=== PATIENT | female | born 1975 | race Caucasian/White ===

== ENCOUNTER 2018-06-03 13:46 | Emergency (ER) | payer OTHER ==
[~2018-06-03] VITALS: Ht 157.5 cm; Wt 91.3 kg
[2018-06-03] MEDS ORDERED: ZESTRIL10 MG PO (15:08)
[2018-06-03] MEDS ORDERED: PENICILLIN V P500 MG PO (15:08)
== END 2018-06-03 18:10 | disposition short-term general hospital (02) ==
LOC: ED 13:46
DX: K12.2 Cellulitis and abscess of mouth (principal); I10 Essential (primary) hypertension; Z79.899 Other long term (current) drug therapy
CPT/HCPCS: 70487; 80053; 83605; 84703; 85025; 96361; 96365; 96375; 99284-25; J1200; J2270; J2405; J2543; J7030; J7060; Q9967

== ENCOUNTER 2024-06-07 08:47 | Day surgery (SDC) | payer OTHER ==
[~2024-06-07] VITALS: Ht 157.5 cm; Wt 93.4 kg
[~2024-06-07 08:47] MED LIST: ACETAMINOPHEN500 MG PO; AMOX TR-K CLV1 EAC1 PO; HYDROCODON-ACE1 EA10 PO; HYDROCODON-ACE1 EA11 PO; IBLOOD GLUCOSE TEST STRIP 1 EA TEST VI PRN; IBUPROFEN200 M1 PO; IBUPROFEN600 MG PO; LACTATED RINGER'S 1,000 ML IV SCH; LIDOCAINE HCL 1% 5 ML SDV INJ ONE; LISINOPRIL-HCT1 EAC2 PO; LISINOPRIL-HCT1 EACH PO; MIDAZOLAM HCL 5 MG/5 ML VIAL IV PRN; PENICILLIN V P500 MG PO; ZESTRIL10 MG PO; fentaNYL citrate 100 MCG/2 ML VIAL IV PRN
[2024-06-07 09:10] VITALS: BP 119/92
[2024-06-07] MEDS ORDERED: MIDAZOLAM HCL 5 MG/5 ML VIAL ONE ×2 (10:23→10:50)
[2024-06-07] MEDS ORDERED: fentaNYL citrate 100 MCG/2 ML VIAL ONE (10:23)
--- NOTE | 2024-06-07 11:17 | NUR ---
06/07/24 Yumiko7 Colleen Ornelas 1113-PATIENT ARRIVED TO PACU AWAKE LAYING LEFT LATERAL 2L NC 98% RR EVEN. HR 107. ABDOMEN SOFT IVF INFUSING. ENCOURAGED TO PASS GAS. DENIES PAIN OR NAUSEA.
[2024-06-07 11:58] VITALS: BP 118/82
--- NOTE | 2024-06-08 10:30 | OR ---
[facility] [address], [place] [address] Signed DATE OF OPERATION: 06/07/2024 SURGEON: Avril Barlow MD PREOPERATIVE DIAGNOSIS: Positive Cologuard test. POSTOPERATIVE DIAGNOSES: 1. 4 mm polyp at 8 cm in rectum. 2. 4 mm polyp at proximal transverse colon. 3. 4 mm polyp at hepatic flexure. PROCEDURE: Colonoscopy with hot biopsy. ESTIMATED BLOOD LOSS: None. INDICATIONS: Izzy is a 48-year-old female who is learning disabled and is now on disability. She has a sister who helps her get around town and go to appointments and so forth. She had a positive Cologuard test in April 2023. She has been anxious about having the colonoscopy. She told me she was raised by her grandparents. She has no knowledge of her dad or his side of the family. She does not believe anyone on her mother side of the family has colon cancer or colon polyps. She has no lower GI complaints. She told me the heart rate is fast because she was anxious in the office. In the office, I gave her our brochure on colonoscopy. We had reviewed the nature of the colonoscopy. She understands there is risk including, but not limited to gas bloating, crampy abdominal pain, bleeding, perforation requiring surgery, and missed diagnosis. We also reviewed the written instructions for the bowel prep line by line. She also understands the need for IV conscious sedation. She had expressed understanding and wished to proceed. DESCRIPTION OF PROCEDURE: Izzy was taken into our endoscopy suite and placed in the left lateral decubitus position. Once again she was anxious and her heart rate was just over 100 as it was in the office. She was given a total of 12 mg of Versed and 150 mcg of fentanyl. Overall, she did fine, but she was frequently awake and moaning. I think in the future she would be much better served with monitored anesthesia care propofol infusion. I think it will be safer and she will wake up lingo cleaner and it would be more comfortable. A digital rectal exam had been done and this was unremarkable. No external hemorrhoids. Good Electronically Signed By: AVRIL BARLOW MD 06/08/24 1030 PATIENT NAME: IZZY JANE OPERATIVE REPORT DATE OF : 79 REPORT #: [id number] PHYSICIAN: AVRIL BARLOW MD PCP: AMINA TAMAYO PA-C REPORT IS CONFIDENTIAL AND NOT TO BE RELEASED WITHOUT AUTHORIZATION [facility] [address], [place] [address] Signed sphincter tone. No masses. The adult colonoscope had been introduced and advanced as above. We eventually made it around into the cecum. She had some areas of liquid stool that was irrigated and suctioned out. I think in the future, she could increase the polyethylene glycol up to 3/4 or even a full gallon along with the Dulcolax tablets would be better. We got into the cecum, I could see the appendiceal orifice. We could see the ileocecal valve. We had taken pictures throughout for photodocumentation. The scope was then slowly withdrawn. We removed the above polyps with the help of hot biopsy forceps. No diverticulosis. Once in the rectum, the scope was retroflexed and we did not see any obvious pathology above the anal canal. After this, the gas was suctioned out. The colonoscope removed. Izzy tolerated the procedure quite well. RECOMMENDATIONS: Izzy will follow up my office in 1 to 2 weeks to review her results. She should probably have monitored anesthesia care in the future as described above. Avril Barlow MD ALB/MODL /[id number] cc: WAYLON Waggoner MD Copies: AVRIL BARLOW MD ~ Electronically Signed By: AVRIL BARLOW MD 06/08/24 1030 PATIENT NAME: IZZY JANE OPERATIVE REPORT DATE OF : 79 REPORT #: [id number] PHYSICIAN: AVRIL BARLOW MD PCP: AMINA TAMAYO PA-C REPORT IS CONFIDENTIAL AND NOT TO BE RELEASED WITHOUT AUTHORIZATION
--- NOTE | 2024-06-09 14:49 | PATH ---
[facility] [address], [place] [address] Signed SPECIMEN(S): A RECTAL POLYP AT 8 CM SPECIMEN(S): B PROXIMAL TRANSVERSE COLON POLYP SPECIMEN(S): C HEPATIC FLEXURE COLON POLYP SPECIMEN SOURCE: A. RECTAL POLYP AT 8 CM B. PROXIMAL TRANSVERSE COLON POLYP C. HEPATIC FLEXURE COLON POLYP CLINICAL HISTORY: Screening, positive Cologuard. FINAL PATHOLOGIC DIAGNOSIS: A. Rectal polyp at 8 cm: - Hyperplastic polyp (one fragment). B. Proximal transverse colon polyp: - Serrated polyp/adenoma (one fragment). C. Hepatic flexure colon polyp: - Tubular adenoma (one fragment). JVR:smn MICROSCOPIC EXAMINATION: Histologic sections of all submitted blocks are examined by light microscopy. These findings, together with the gross examination, support the pathologic diagnosis. GROSS DESCRIPTION: A. The specimen, labeled and designated "Fina, C, rectal polyp at 8 cm," is received in formalin and consists of one leslie soft tissue fragment, 0.3 cm. Entirely submitted in (A1). B. The specimen, labeled and designated "Fina, C, proximal transverse colon polyp," is received in formalin and consists of one leslie soft tissue fragment, 0.3 cm. Entirely submitted in (B1). C. The specimen, labeled and designated "Fina, C, hepatic flexure colon polyp," is received in formalin and consists of one leslie soft tissue fragment, 0.3 cm. Entirely submitted in (C1). AB (under the direct supervision of a pathologist) The Gross Description was prepared using a voice recognition system. The report was reviewed for accuracy; however, sound-alike word errors, addition and/or deletions may occur. If there is any question about this report, please contact Client Services. PATIENT NAME: TARIQ JANE PATHOLOGY DATE OF : 79 REPORT #: [id number] PHYSICIAN: CHRISTOPHER HSIEH PCP: AMINA TAMAYO PA-C REPORT IS CONFIDENTIAL AND NOT TO BE RELEASED WITHOUT AUTHORIZATION [address] [address] Signed PERFORMING LABORATORY: Technical component was performed by [facility], [address] [place] [id number] (CLIA# [id number]). Professional interpretation was performed by [facility] - [facility], [address] [place] [id number] (CLIA#: [id number]). Diagnostician: Roshan Mariscal MD Pathologist Electronically Signed 06/09/2024 Copies: ~ PATIENT NAME: TARIQ JANE PATHOLOGY DATE OF : 79 REPORT #: [id number] PHYSICIAN: CHRISTOPHER HSIEH PCP: AMINA TAMAYO PA-C REPORT IS CONFIDENTIAL AND NOT TO BE RELEASED WITHOUT AUTHORIZATION
== END 2024-06-07 12:05 | disposition home or self-care (01) ==
LOC: DS 08:47
PROVIDERS: ATTEND Colon & Rectal Surgery
PROC: 0DBL8ZX Excision of Transverse Colon, Via Natural or Artificial Opening Endoscopic, Diagnostic (ICD-10-PCS; 2024-06-07)
PROC: 0DBP8ZX Excision of Rectum, Via Natural or Artificial Opening Endoscopic, Diagnostic (ICD-10-PCS; principal; 2024-06-07 10:30)
DX: Z12.11 Encounter for screening for malignant neoplasm of colon (principal); K62.1 Rectal polyp; D12.3 Benign neoplasm of transverse colon; I10 Essential (primary) hypertension; F81.9 Developmental disorder of scholastic skills, unspecified; E78.5 Hyperlipidemia, unspecified; E66.9 Obesity, unspecified; Z68.37 Body mass index [BMI] 37.0-37.9, adult; Z87.891 Personal history of nicotine dependence; Z79.899 Other long term (current) drug therapy
CPT/HCPCS: 84703; 88305; 99153; G0500; J2250; J3010